=== PATIENT | female | born 1985 | race Caucasian/White ===

== ENCOUNTER 2018-09-22 22:19 | Emergency (ER) | payer MEDICAID ==
[2018-09-22] MEDS ORDERED: Ketorolac 60 MG/2 ML SDV IM ONE (22:48)
--- NOTE | 2018-09-22 22:55 | EDM.PDOC ---
ED HPI GENERAL MEDICAL PROBLEM - General Chief Complaint: General Stated Complaint: PAIN RIGHT SIDE OF FACE Time Seen by Provider: 09/22/18 22:23 Source of Information: Reports: Patient, Family (Mom in exam room) History Limitations: Reports: No Limitations - History of Present Illness INITIAL COMMENTS - FREE TEXT/NARRATIVE: chief complaint: Dental or Ear pain This is a 33 year old female present to ER with her Mom, reports tooth broke apart some time ago due to cavity. started to ache a few days ago, this evening had right sided jaw, sinus and ear pain. Points to the right middle jaw as being painful. denies any diabetes, heart disease, or breast feeding. Onset: Gradual Duration: Day(s):, Getting Worse Location: Reports: Other (dental pain) Quality: Reports: Sharp, Stabbing, Throbbing Severity: Severe Improves with: Reports: None Worsens with: Reports: None Context: Reports: Other (broken tooth and cavity) Associated Symptoms: Reports: No Other Symptoms Treatments BEEF KILLER: Reports: Acetaminophen, NSAIDS ED ROS GENERAL - Review of Systems Review Of Systems: See Below Constitutional: Reports: Other (dental pain) HEENT: Reports: Dental Pain, Ear Pain, Sinus Problem Respiratory: Reports: No Symptoms Cardiovascular: Reports: No Symptoms Skin: Reports: No Symptoms Neurological: Reports: Paresthesia Psychiatric: Reports: No Symptoms Hematologic/Lymphatic: Reports: No Symptoms Immunologic: Reports: No Symptoms ED EXAM, GENERAL - Physical Exam Exam: See Below Exam Limited By: No Limitations General Appearance: Alert, WD/WN, Moderate Distress Eye Exam: Bilateral Eye: Normal Inspection Ears: Normal External Exam, Normal Canal, Hearing Grossly Normal, Normal TMs Ear Exam: Bilateral Ear: Auricle Normal, Canal Normal, TM normal Nose: Normal Inspection, Normal Mucosa, No Blood Throat/Mouth: Normal Lips, Other (right upper jaw, molar #1 with fracture, tooth loss and brown cavity. gums with inflammation, increased pain with movement of jaw. tearful during exam.) Head: Atraumatic, Normocephalic Neck: Normal Inspection, Supple, Non-Tender, Full Range of Motion Respiratory/Chest: No Respiratory Distress, Lungs Clear, Normal Breath Sounds Cardiovascular: Regular Rate, Rhythm, No Murmur Extremities: Normal Inspection Psychiatric: Tearful Skin Exam: Warm, Dry, Intact, Normal Color, No Rash Lymphatic: No Adenopathy Course - Vital Signs Last Recorded V/S: Last Vital Signs Temp 35.1 C L 09/22/18 22:59 Pulse 82 09/22/18 22:59 Resp 12 09/22/18 22:59 BP 170/98 H 09/22/18 22:59 Pulse Ox 98 09/22/18 22:59 - Orders/Labs/Meds Meds: Medications Discontinued Medications Generic Name Dose Route Start Last Admin Trade Name Claudio PRN Reason Stop Dose Admin Ketorolac Tromethamine 60 mg 09/22/18 22:48 Toradol IM 09/22/18 22:49 ONETIME ONE - Re-Assessments/Exams Free Text/Narrative Re-Assessment/Exam: 09/22/18 23:11 given Toradol 60 mg IM for pain order medications for infection and pain control will need referral to Dental Clinic Patient and Mother agrees with plan of care. Departure - Departure Time of Disposition: 22:56 Disposition: Home, Self-Care 01 Condition: Good Clinical Impression: Partial loss of tooth due to caries, Pain due to dental caries - Discharge Information *PRESCRIPTION DRUG MONITORING PROGRAM REVIEWED*: No *COPY OF PRESCRIPTION DRUG MONITORING REPORT IN PATIENT FAITH: No Instructions: Diet and Dental Disease, Pain Medicine Instructions, [id number] Referrals: PCP,None [Primary Care Provider] - Forms: ED Department Discharge Care Plan Goals: Dental Pain -molar #1 with tooth loss and large cavity -Toradol 60 mg IM in ER -Toradol 10mg po every 6 to 8 hours as needed for pain, not to exceed 5 days -Hydrocodone 5-325mg one tablet every 4 to 6 horus as needed for pain #8 -may continue to use Motrin and Tylenol for less acute pain Referral [facility] on Tuesday return to ER if not improved or symptoms worsen. - Problem List & Annotations (1) Pain due to dental caries SNOMED Code(s): 61295949, 58409046 Code(s): K02.9 - DENTAL CARIES, UNSPECIFIED Status: Acute Priority: High Current Visit: Yes (2) Partial loss of tooth due to caries SNOMED Code(s): 89356773 Code(s): K08.439 - PARTIAL LOSS OF TEETH DUE TO CARIES, UNSPECIFIED CLASS Status: Acute Priority: High Current Visit: Yes - Problem List Review Problem List Initiated/Reviewed/Updated: Yes - Assessment/Plan Plan: Dental Pain -molar #1 with tooth loss and large cavity -Toradol 60 mg IM in ER -Toradol 10mg po every 6 to 8 hours as needed for pain, not to exceed 5 days -Hydrocodone 5-325mg one tablet every 4 to 6 horus as needed for pain #8 -may continue to use Motrin and Tylenol for less acute pain Referral to [facility] on Tuesday return to ER if not improved or symptoms worsen.
== END 2018-09-22 23:48 | disposition home or self-care (01) ==
LOC: JP.ED 22:19
DX: K08.439 Partial loss of teeth due to caries, unspecified class (principal); K02.9 Dental caries, unspecified
CPT/HCPCS: 96372; 99283; J1885

== ENCOUNTER 2019-08-14 16:34 | Emergency (ER) | payer BC, MEDICAID, OTHER ==
--- NOTE | 2019-08-14 19:02 | EDM.PDOC ---
ED HPI GENERAL MEDICAL PROBLEM - General Chief Complaint: Respiratory Problem Stated Complaint: SOB Time Seen by Provider: 08/14/19 18:30 Source of Information: Reports: Patient History Limitations: Reports: No Limitations - History of Present Illness INITIAL COMMENTS - FREE TEXT/NARRATIVE: This is a 34 yo, smoker, otherwise healthy female who presents with concerns of cough, fever, myalgias. She reports several weeks of subacute cough, with worsening of symptoms approximately 6 days ago. She was seen by her PCP who prescribed a zpak, symptoms continued to worsen on this, switch to doxycycline yesterday. During the last few days she's had subjective fevers and chills and now with myalgias in the lower extremities. Cough has been intermittently productive. 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 No recent travel other than to the [facility]. Father is sick with bronchitis. She denies any hx of heart disease. No chest pain. No history of VTE, LE swelling, or unilateral pain. She is on hormonal contraceptive and a smoker. Anterior Chest Pain Score (Numeric/FACES): 7 - Related Data Allergies Allergy/AdvReac Type Severity Reaction Status Date / Time No Known Allergies Allergy Verified 08/14/19 16:51 Home Meds: Home Meds Albuterol Sulfate [Albuterol Sulfate Hfa] 2 puff IH Q4H 08/14/19 [History] Benzonatate [Tessalon Perle] 100 mg PO Q4HR PRN #15 capsule 08/14/19 [Rx] Doxycycline Monohydrate 1 tab PO BID 08/14/19 [History] Past Medical History - Past Health History Medical/Surgical History: Denies Medical/Surgical History Cardiovascular History: Reports: Hypertension Neurological History: Reports: Migraines - Infectious Disease History Infectious Disease History: Reports: Chicken Pox - Past Surgical History GI Surgical History: Reports: Cholecystectomy Social & Family History - Family History Family Medical History: Noncontributory - Tobacco Use Smoking Status *Q: Current Every Day Smoker Years of Tobacco use: 15 Packs/Tins Daily: 0.5 Used Tobacco, but Quit: No Second Hand Smoke Exposure: Yes - Caffeine Use Caffeine Use: Reports: Energy Drinks, Soda, Tea - Alcohol Use Days Per Week of Alcohol Use: 0 - Recreational Drug Use Recreational Drug Use: No ED ROS GENERAL - Review of Systems Review Of Systems: See Below Constitutional: Reports: Fever, Chills HEENT: Reports: No Symptoms Respiratory: Reports: Shortness of Breath, Cough. Denies: Pleuritic Chest Pain , Hemoptysis Cardiovascular: Denies: Chest Pain Endocrine: Reports: No Symptoms GI/Abdominal: Reports: No Symptoms : Reports: No Symptoms Musculoskeletal: Reports: Muscle Pain Skin: Reports: No Symptoms Neurological: Reports: No Symptoms Psychiatric: Reports: No Symptoms Hematologic/Lymphatic: Reports: No Symptoms Immunologic: Reports: No Symptoms ED EXAM, GENERAL - Physical Exam Exam: See Below Exam Limited By: No Limitations General Appearance: Alert, No Apparent Distress Ears: Normal External Exam Nose: Normal Inspection Throat/Mouth: Normal Inspection Head: Atraumatic, Normocephalic Neck: Normal Inspection Respiratory/Chest: No Respiratory Distress, Lungs Clear Cardiovascular: Regular Rate, Rhythm GI/Abdominal: Soft, Non-Tender Back Exam: Normal Inspection Extremities: Normal Inspection, No Pedal Edema, Other (no tenderness or unilateral swelling) Neurological: Alert, Oriented Psychiatric: Normal Affect, Normal Mood Skin Exam: Warm, Dry Course - Vital Signs Last Recorded V/S: Last Vital Signs Temp 38.6 C H 08/14/19 19:58 Pulse 110 H 08/14/19 19:58 Resp 24 H 08/14/19 19:58 BP 155/82 H 08/14/19 19:58 Pulse Ox 95 08/14/19 19:58 - Orders/Labs/Meds Orders: Active Orders 24 hr Category Date Time Status CXR [Chest 2V] [CR] Stat Exams 08/14/19 18:51 Ordered Isolation [COMM] Routine Oth 08/14/19 18:52 Ordered Meds: Medications Discontinued Medications Generic Name Dose Route Start Last Admin Trade Name Freq PRN Reason Stop Dose Admin Acetaminophen 650 mg 08/14/19 19:31 08/14/19 19:57 Tylenol PO 08/14/19 19:32 650 mg NOW ONE Administration - Re-Assessments/Exams Free Text/Narrative Re-Assessment/Exam: 34 yo who presents with cough, subjective fever, myalgias. Overall well appearing on exam, no focal findings, normal vitals. Consistent with viral illness, now treated with zpac to no effect. Considered alternative etiology such as PE, some risk factors, but with strong infectious symptoms low suspicion for this. Will check influenza, perform CXR. 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 08/14/19 19:03 Free Text/Narrative Re-Assessment/Exam: Positive for influenza A Appropriate for discharge with supportive cares, discussed this Imaging system is down, unable to view CXR, so will contact patient if acute abnormality. 08/14/19 20:12 Departure - Departure Time of Disposition: 20:13 Disposition: Home, Self-Care 01 Clinical Impression: Influenza A - Discharge Information Instructions: Influenza, Adult, [id number] Referrals: Morris Maldonado MD [Primary Care Provider] - Forms: ED Department Discharge Additional Instructions: You are being diagnosed with the flu Please continue to push fluids, use tylenol for fever or muscle aches, and try the prescribed medicine for cough See a physician if you have significant increase in difficulty breathing Avoid contact with others until you are asymptomatic for 24 hours Sepsis Event Note - Evaluation Sepsis Screening Result: No Definite Risk - Focused Exam Vital Signs: Vital Signs Temp Pulse Resp BP Pulse Ox 08/14/19 19:58 38.6 C H 110 H 24 H 155/82 H 95 08/14/19 17:38 38.0 C 110 H 20 160/85 H 93 L 08/14/19 17:01 37.7 C 105 H 20 197/93 H 93 L 08/14/19 16:53 37.7 C 105 H 20 197/93 H 93 L Date Exam was Performed: 08/14/19 Time Exam was Performed: 20:12 - My Orders Last 24 Hours: My Active Orders 08/14/19 18:51 CXR [Chest 2V] [CR] Stat 08/14/19 18:52 Isolation [COMM] Routine - Assessment/Plan Last 24 Hours: My Active Orders 08/14/19 18:51 CXR [Chest 2V] [CR] Stat 08/14/19 18:52 Isolation [COMM] Routine
[2019-08-14] MEDS ORDERED: Acetaminophen 325 MG Tab PO ONE (19:31)
--- NOTE | 2019-08-15 09:11 | CR ---
CHEST: 2 view CLINICAL HISTORY:Dyspnea cough COMPARISON:2007 FINDINGS: Heart size is normal. Pulmonary vascularity is mildly cephalized. There is mild interstitial prominence. Lung markings are exaggerated by patient body habitus. No effusions are seen Impression: Mild pulmonary vascular and interstitial prominence. This may represent some pulmonary venous hypertension Lung markings are exaggerated by patient's large body habitus
== END 2019-08-14 20:47 | disposition home or self-care (01) ==
LOC: JP.ED 16:34
DX: J10.1 Influenza due to other identified influenza virus with other respiratory manifestations (principal); F17.210 Nicotine dependence, cigarettes, uncomplicated; I10 Essential (primary) hypertension
CPT/HCPCS: 71046; 87804; 99283; A9270

== ENCOUNTER 2020-11-05 18:58 | Emergency (ER) | payer BC | END 2020-11-05 20:39 | disposition left against medical advice (07) | LOC: JP.ED 18:58 | DX: Z53.21 Procedure and treatment not carried out due to patient leaving prior to being seen by health care provider (principal) ==

== ENCOUNTER 2020-11-05 23:30 | Emergency (ER) | payer BC ==
[2020-11-05] MEDS ORDERED: Methocarbamol 500 MG Tab PO ONE (23:51)
[2020-11-05] MEDS ORDERED: Ketorolac 30 MG/ML SDV IM ONE (23:51)
--- NOTE | 2020-11-05 23:51 | EDM.PDOC ---
ED HPI GENERAL MEDICAL PROBLEM - General Chief Complaint: ENT Problem Stated Complaint: EAR INFECTION/BACK PAIN Time Seen by Provider: 11/05/20 23:44 Source of Information: Reports: Patient History Limitations: Reports: No Limitations - History of Present Illness INITIAL COMMENTS - FREE TEXT/NARRATIVE: Keri is a 35-year-old female presenting to the ED with for evaluation of b ilateral ear pain, facial pressure and pain, nasal congestion and rhinorrhea, and worsening low back pain. Patient symptoms started 3 days ago and have been continuing to worsen. - Related Data Allergies Allergy/AdvReac Type Severity Reaction Status Date / Time No Known Allergies Allergy Verified 11/05/20 23:41 Home Meds: Home Meds Furosemide 20 mg PO DAILY 11/05/20 [History] Phentermine HCl 18.75 mg PO DAILY 11/05/20 [History] methocarbamoL [Methocarbamol] 750 mg PO QID PRN #28 tablet 11/05/20 [Rx] Past Medical History - Past Health History Medical/Surgical History: Denies Medical/Surgical History Cardiovascular History: Reports: Hypertension Neurological History: Reports: Migraines - Infectious Disease History Infectious Disease History: Reports: Chicken Pox - Past Surgical History GI Surgical History: Reports: Cholecystectomy Social & Family History - Family History Family Medical History: No Pertinent Family History - Caffeine Use Caffeine Use: Reports: Energy Drinks, Soda, Tea ED ROS ENT - Review of Systems Review Of Systems: See Below Constitutional: Reports: No Symptoms HEENT: Reports: Ear Pain, Hearing Loss, Rhinitis, Sinus Problem Respiratory: Reports: Cough Cardiovascular: Reports: No Symptoms Endocrine: Reports: No Symptoms GI/Abdominal: Reports: No Symptoms : Reports: No Symptoms Musculoskeletal: Reports: No Symptoms Skin: Reports: No Symptoms Neurological: Reports: Headache Psychiatric: Reports: No Symptoms Hematologic/Lymphatic: Reports: No Symptoms Immunologic: Reports: No Symptoms ED EXAM, ENT - Physical Exam Exam: See Below Exam Limited By: No Limitations General Appearance: Alert, Mild Distress, Obese Eye Exam: Bilateral Eye: EOMI, PERRL Ears: TM Bulging, TM Fluid (Bilateral serous effusions without erythema of the tympanic membrane). No: TM Erythema Nose: Nasal Discharge, Nasal Swelling, Other (Tenderness to percussion over the maxillary sinuses greater on the left than on the right.) Mouth/Throat: Normal Inspection Head: Atraumatic, Normocephalic Neck: Normal Inspection, Supple, Full Range of Motion. No: Lymphadenopathy (R), Lymphadenopathy (L) Respiratory/Chest: No Respiratory Distress, Lungs Clear, Normal Breath Sounds Cardiovascular: Normal Peripheral Pulses, Regular Rate, Rhythm, No Murmur Neurological: Alert, Oriented, Normal Cognition, No Motor/Sensory Deficits Skin: Warm, Dry Course - Vital Signs Last Recorded V/S: Last Vital Signs Temp 36.5 C 11/05/20 23:48 Pulse 89 11/05/20 23:48 Resp 18 11/05/20 23:48 BP 185/90 H 11/05/20 23:48 Pulse Ox 96 11/05/20 23:48 - Orders/Labs/Meds Meds: Medications Discontinued Medications Generic Name Dose Route Start Last Admin Trade Name Claudio PRN Reason Stop Dose Admin Ketorolac Tromethamine 30 mg 11/05/20 23:51 Ketorolac 30 Mg/Ml Sdv IM 11/05/20 23:52 ONETIME ONE Methocarbamol 1,000 mg 11/05/20 23:51 Methocarbamol 500 Mg Tab PO 11/05/20 23:52 ONETIME ONE - Re-Assessments/Exams Free Text/Narrative Re-Assessment/Exam: 11/06/20 00:02 Keri has significant tenderness to percussion over the maxillary sinuses consistent with acute maxillary sinusitis. She has bilateral serous ear effusions which would be consistent with the nasal congestion and failure of the eustachian tubes to function properly. We will put her on az ithromycin Z-Ralph for this. She did see the chiropractor today was fairly aggressive at manipulating her back and now has low back pain consistent with acute on chronic low back pain. We will put her on methocarbamol 750 mg 4 times daily as needed for that. She may take Tylenol or ibuprofen for pain control. I did recommend that she take Sudafed 12-hour to help decongest the nasal passages and sinuses. She may do a [place] pot or steam which may also be beneficial. Indications to return to the ED were discussed and she was discharged in satisfactory condition. Departure - Departure Time of Disposition: 23:56 Disposition: Home, Self-Care 01 Clinical Impression: Acute effusion of both middle ears Acute maxillary sinusitis Qualifiers: Recurrence: not specified as recurrent Qualified Code(s): J01.00 - Acute maxillary sinusitis, unspecified Lumbago Qualifiers: Chronicity: acute Back pain laterality: bilateral Sciatica presence: without sciatica Qualified Code(s): M54.5 - Low back pain - Discharge Information Prescriptions: methocarbamoL [Methocarbamol] 750 mg PO QID PRN #28 tablet PRN Reason: Muscle Spasm - Painful Instructions: Sinusitis, Adult, Acute Back Pain, Adult Referrals: Morris Maldonado MD [Primary Care Provider] - Forms: ED Department Discharge Care Plan Goals: We are putting you on methocarbamol 750 mg 4 times a day as needed for back pain. This is a very potent muscle relaxant that is typically nonsedating so you should be able to function on it. In addition I would recommend Tylenol or ibuprofen for pain control. You do have acute sinusitis causing fluid buildup in the ears. I would recommend Sudafed 12 Hour for your decongestant and we are putting you on azithromycin Z-Ralph for the infection. You may have some benefit by using the [place] pot. Inhaling steam will be as effective and less intrusive. Sepsis Event Note (ED) - Focused Exam Vital Signs: Vital Signs Temp Pulse Resp BP Pulse Ox 11/05/20 23:48 36.5 C 89 18 185/90 H 96 - Problem List & Annotations (1) Acute effusion of both middle ears SNOMED Code(s): 85716342 Code(s): H65.193 - OTHER ACUTE NONSUPPURATIVE OTITIS MEDIA, BILATERAL Status: Acute Priority: Medium Current Visit: Yes (2) Acute maxillary sinusitis SNOMED Code(s): 81107155 Code(s): J01.00 - ACUTE MAXILLARY SINUSITIS, UNSPECIFIED Status: Acute Priority: Medium Current Visit: Yes Qualifiers: Recurrence: not specified as recurrent Qualified Code(s): J01.00 - Acute maxillary sinusitis, unspecified (3) Lumbago SNOMED Code(s): 818680134 Code(s): M54.5 - LOW BACK PAIN Status: Acute Priority: Medium Current Visit: Yes Qualifiers: Chronicity: acute Back pain laterality: bilateral Sciatica presence: without sciatica Qualified Code(s): M54.5 - Low back pain - Problem List Review Problem List Initiated/Reviewed/Updated: Yes
== END 2020-11-06 00:14 | disposition home or self-care (01) ==
LOC: JP.ED 23:30
DX: J01.00 Acute maxillary sinusitis, unspecified (principal); H65.193 Other acute nonsuppurative otitis media, bilateral; M54.5 Low back pain; I10 Essential (primary) hypertension
CPT/HCPCS: 96372; 99283; A9270; J1885

== ENCOUNTER 2020-11-09 09:40 | Emergency (ER) | payer BC ==
--- NOTE | 2020-11-09 11:56 | EDM.PDOC ---
ED HPI GENERAL MEDICAL PROBLEM - General Chief Complaint: Respiratory Problem Stated Complaint: POSSIBLE PNEUMONIA Time Seen by Provider: 11/09/20 11:26 Source of Information: Reports: Patient History Limitations: Reports: No Limitations - History of Present Illness INITIAL COMMENTS - FREE TEXT/NARRATIVE: 35 yo female that presents to the ER with cough. She was tx earlier in the week for a sinus infection with Azithromycin z-pack. She did stop her antibiotics at day 3. She felt the sinuses had improved but feels more SOB and coughing increased. Pt is a smoker. denies asthma or COPD. Afebrile. She did have eye surgery 2 days ago. continues to feel fatigue and SOB with activity. appetite is normal. - Related Data Allergies Allergy/AdvReac Type Severity Reaction Status Date / Time No Known Allergies Allergy Verified 11/09/20 11:20 Home Meds: Home Meds Furosemide 20 mg PO DAILY 11/05/20 [History] Phentermine HCl 18.75 mg PO DAILY 11/05/20 [History] methocarbamoL [Methocarbamol] 750 mg PO QID PRN #28 tablet 11/05/20 [Rx] Acetaminophen/Codeine [Tylenol with Codeine No.3 300MG/30MG] 1 tab PO Q6H PRN 11/09/20 [History] Azithromycin 1 gm PO DAILY 11/09/20 [History] Pseudoephedrine [Sudafed 12 Hour] 1 tab PO Q12H PRN 11/09/20 [History] Past Medical History - Past Health History Medical/Surgical History: Denies Medical/Surgical History Cardiovascular History: Reports: Hypertension Neurological History: Reports: Migraines Endocrine/Metabolic History: Reports: Obesity/BMI 30+ - Infectious Disease History Infectious Disease History: Reports: Chicken Pox - Past Surgical History GI Surgical History: Reports: Cholecystectomy Social & Family History - Family History Family Medical History: No Pertinent Family History - Tobacco Use Tobacco Use Status *Q: Current Every Day Tobacco User Years of Tobacco use: 20 Packs/Tins Daily: 0.5 - Caffeine Use Caffeine Use: Reports: Soda - Recreational Drug Use Recreational Drug Use: No ED ROS GENERAL - Review of Systems Review Of Systems: See Below Constitutional: Reports: Fatigue. Denies: Fever, Chills HEENT: Reports: Sinus Problem. Denies: Throat Pain, Throat Swelling Respiratory: Reports: Shortness of Breath, Cough. Denies: Wheezing Cardiovascular: Denies: Chest Pain GI/Abdominal: Denies: Abdominal Pain ED EXAM, GENERAL - Physical Exam Exam: See Below Exam Limited By: No Limitations General Appearance: Alert, WD/WN, No Apparent Distress Ears: Normal External Exam, Normal Canal, Hearing Grossly Normal, Normal TMs Nose: Normal Inspection, Normal Mucosa, No Blood Throat/Mouth: Normal Inspection, Normal Lips, Normal Teeth, Normal Gums, Normal Oropharynx, Normal Voice, No Airway Compromise Head: Atraumatic, Normocephalic Neck: Normal Inspection, Supple, Non-Tender, Full Range of Motion. No: Lymphadenopathy (R), Lymphadenopathy (L) Respiratory/Chest: No Respiratory Distress, Lungs Clear, Decreased Breath Sounds (bases) Cardiovascular: Normal Peripheral Pulses, Regular Rate, Rhythm, No Murmur GI/Abdominal: Soft, Non-Tender Neurological: Alert, Oriented Psychiatric: Normal Affect, Normal Mood Skin Exam: Warm, Dry, Intact Course - Vital Signs Last Recorded V/S: Last Vital Signs Temp 36.4 C 11/09/20 11:17 Pulse 80 11/09/20 11:17 Resp 20 11/09/20 11:17 BP 165/101 H 11/09/20 11:17 Pulse Ox 94 L 11/09/20 11:17 - Orders/Labs/Meds Orders: Active Orders 24 hr Category Date Time Status Chest 2V [CR] Stat Exams 11/09/20 11:44 Ordered - Re-Assessments/Exams Free Text/Narrative Re-Assessment/Exam: 11/09/20 12:27 x-ray shows no acute infiltrates Departure - Departure Time of Disposition: 12:32 Disposition: Home, Self-Care 01 Condition: Good Clinical Impression: Obesity hypoventilation syndrome, Morbid obesity due to excess calories, Tobacco dependence Bronchitis, acute Qualifiers: Bronchitis organism: unspecified organism Qualified Code(s): J20.9 - Acute bronchitis, unspecified - Discharge Information *PRESCRIPTION DRUG MONITORING PROGRAM REVIEWED*: Not Applicable *COPY OF PRESCRIPTION DRUG MONITORING REPORT IN PATIENT FAITH: Not Applicable Instructions: Viral Respiratory Infection, [id number] Referrals: PCP,None [Primary Care Provider] - Forms: ED Department Discharge Additional Instructions: albuterol 1-2 puffs as needed for shortness or breath and wheezing every 4 hours increase fluid intake with goal of 64 ounces per day you can use over the counter Mucinex Sepsis Event Note (ED) - Evaluation Sepsis Screening Result: No Definite Risk - Focused Exam Vital Signs: Vital Signs Temp Pulse Resp BP Pulse Ox 11/09/20 11:17 36.4 C 80 20 165/101 H 94 L - My Orders Last 24 Hours: My Active Orders 11/09/20 11:44 Chest 2V [CR] Stat - Assessment/Plan Last 24 Hours: My Active Orders 11/09/20 11:44 Chest 2V [CR] Stat
--- NOTE | 2020-11-10 11:06 | CR ---
CHEST: 2 view CLINICAL HISTORY:Cough COMPARISON:2020 FINDINGS: The heart size, pulmonary vascularity and hilar structures are normal. No infiltrate effusion or pneumothorax is seen. Lung markings are exaggerated due to patient body habitus IMPRESSION: No acute cardiopulmonary process.
== END 2020-11-09 12:48 | disposition home or self-care (01) ==
LOC: JP.ED 09:40
DX: J20.9 Acute bronchitis, unspecified (principal); E66.01 Morbid (severe) obesity due to excess calories; F17.200 Nicotine dependence, unspecified, uncomplicated; I10 Essential (primary) hypertension; Z79.899 Other long term (current) drug therapy
CPT/HCPCS: 71046; 71046-26; 99284-25

== ENCOUNTER 2024-07-28 15:49 | Emergency (ER) | payer BC, OTHER ==
[2024-07-28] MEDS: methylPREDNISolone Sodium Succinate 125 MG/2 ML SDV IM ONE (17:05)
[2024-07-28] MEDS: cefTRIAXone 2 GM, Lidocaine 1% 4.2 ML IM ONE (17:06)
== END 2024-07-28 17:18 | disposition home or self-care (01) ==
LOC: JP.ED 15:49
DX: J18.9 Pneumonia, unspecified organism (principal); I10 Essential (primary) hypertension; E66.9 Obesity, unspecified; F17.210 Nicotine dependence, cigarettes, uncomplicated; Z68.43 Body mass index [BMI] 50.0-59.9, adult; Z98.84 Bariatric surgery status; Z90.49 Acquired absence of other specified parts of digestive tract; Z88.1 Allergy status to other antibiotic agents; Z88.5 Allergy status to narcotic agent
CPT/HCPCS: 71045; 87428; 96372; 99285; J0696; J2003; J2919